=== PATIENT | male | born 2000 | race Caucasian/White ===

== ENCOUNTER 2020-07-17 02:34 | Emergency (ER) | payer BC, SELFPAY ==
[2020-07-17 02:38] VITALS: BP 123/75; PULSE 95; RESP 14; TEMP 37.2; O2SAT 100
--- NOTE | 2020-07-17 02:44 | ED.GENADUL_ITS ---
Discharge Plan Disposition Patient Disposition: HOME Condition: Stable Discharge Details Clinical Impression: Wrist pain, right ED Provider: Jh Leal Home Meds and New Rx's Prescriptions: No Action oxymetazoline [Nasal [place] Sinus] 0.05 % [place],Non-Aerosol 1 spray INTRANASAL DAILY RF: 0 levocetirizine [Xyzal] 5 mg Tablet 5 mg PO DAILY RF: 0 Arnuity Ellipta 200 mcg/actuation Blister With Device 1 inh INHALATION HS RF: 0 Discharge Instructions Instructions: Tendinitis (ED) Additional Instructions: you likely have inflammation of the tendons causing your pain you can take 600mg ibuprofen every 1000mg tylenol every 6 hours for pain as needed if pain continues in a week call orthopedics for an appointment return to the emergency department for severe worsening pain or numbness Referrals: Jose Alejandro Ferris MD [ [facility] STAFF PHYSICIAN] - Medical Decision Making 20 yo male who denies chronic medical problems who is going to school here and normally lives in [place] comes in after he woke up with his right arm bent sideways and was laying on it and felt pain in the wrist so came here. Denies falls or trauma, no fevers. He has not taken anything for the pain. Has no numbness. Has full rom of the wrist and fingers with intact sensation normal capillary refill and normal radial and ulnar pulses. Has pain when he moves wrist towards ulnar side and no swelling or deformity. I suspect strain from position of sleep and possible tendonitis. No trauma and full rom and no findings to suspect fracture. NO findings to suggest vascular abnormality and no swelling. Will place in splint for comfort and have him f/u with ortho if pain continues in a week and return precautions given Differential Diagnosis Differential Diagnosis: sprain, tendonitis, strain HPI General Mode of arrival: ambulatory . Date/Time Provider Initiated Documentation: 07/17/20 02:35 . Limitations to Documentation: no limitations . Information obtained by: patient . History of Present Illness 20 year old M presents to the emergency department with the chief complaint of right wrist pain, described as moderate, and it has been constant. Rest improves symptom(s), Movement worsens symptoms . Patient notes no other symptoms.. Related Data Home Medications Medication Instructions Recorded Confirmed fluticasone furoate [Arnuity 1 inh INHALATION HS 07/17/20 07/17/20 Ellipta] levocetirizine [Xyzal] 5 mg PO DAILY 07/17/20 07/17/20 oxymetazoline [Nasal [place] Sinus] 1 spray INTRANASAL DAILY 07/17/20 07/17/20 Allergies Allergy/AdvReac Type Severity Reaction Status Date / Time Penicillins Allergy Intermediate Skin Rash Unverified 07/17/20 02:43 General Stated Complaint: Orthopedic ELÍAS: 4 Review of Systems All systems reviewed & are unremarkable except as noted in HPI and below Constitutional Constitutional: Denies chills, Denies fever(s) and Denies weakness Cardiovascular Cardiovascular: Denies chest pain and Denies dyspnea Respiratory Respiratory: Denies cough and Denies dyspnea Gastrointestinal Gastrointestinal: Denies abdominal pain, Denies nausea and Denies vomiting Musculoskeletal Musculoskeletal: Denies joint swelling Neurologic Neurologic: Denies weakness Psychiatric Psychiatric: Denies depression [facility] Social History Smoking/Tobacco Use Status: Never Alcohol Intake: never Substance use type: does not use Do you feel safe at home: Yes Exam Const General: no acute distress Orientation: alert HENMT Head: normal to inspection Ears: external ears normal General nose exam: external nose normal Mouth: moist mucous membranes Eyes General: appearance normal, both eyes and all related structures Neck Neck: normal visual inspection Resp Effort & Inspection: normal respiratory effort and able to speak in complete sentences Cardio Rate: regular rate Skin General skin exam: no rashes or lesions noted Neuro General: patient alert and patient oriented x3 Extrem General: normal to inspection Psych Mental Status: mental status grossly normal Course Vital Signs Vital signs: Vital Signs Temperature 37.2 C 07/17/20 02:38 Pulse 95 H 07/17/20 02:38 Respiratory Rate 14 07/17/20 02:38 Blood Pressure 123/75 07/17/20 02:38 Pulse Oximetry 100 07/17/20 02:38 Temperature 37.2 C 07/17/20 02:38 Pulse 95 H 07/17/20 02:38 Respiratory Rate 14 07/17/20 02:38 Blood Pressure 123/75 07/17/20 02:38 Blood Pressure Position Sitting 07/17/20 02:38 Pulse Oximetry 100 07/17/20 02:38 Oxygen Delivery Method Room Air 07/17/20 02:38 Oxygen Flow Rate 0 07/17/20 02:38 Pain Level 7 07/17/20 02:38
[2020-07-17 02:53] VITALS: BP 123/75; PULSE 95; RESP 14; TEMP 37.2; O2SAT 100
[2020-07-17] MEDS: Ibuprofen 600 MG TAB PO (02:53)
== END 2020-07-17 03:03 | disposition home or self-care (01) ==
LOC: ER 03:07
PROVIDERS: Emergency Provider Emergency Medicine
DX: M25.531 Pain in right wrist (principal)
CPT/HCPCS: 29125; 99283; L3908

== ENCOUNTER 2020-07-24 05:29 | Emergency (ER) | payer BC, SELFPAY ==
--- NOTE | 2020-07-24 05:30 | DI.RAD_ITS ---
EXAM: XR ANKLE RT COMPLETE CLINICAL HISTORY: trauma TECHNIQUE: COMPARISON: No exams were available for comparison FINDINGS: Three views were obtained. The ankle mortise is well maintained. There is no evidence of fracture o r dislocation. IMPRESSION: RADIATION DOSE DELIVERED: Total DLP
--- NOTE | 2020-07-24 05:31 | ED.GENADUL_ITS ---
Discharge Plan Disposition Patient Disposition: HOME Condition: Good Discharge Details Clinical Impression: Ankle sprain Primary Care Provider: Nancy,Local ED Provider: Fab Holcomb Meds and New Rx's Prescriptions: Continued levocetirizine [Xyzal] 5 mg Tablet 5 mg PO DAILY RF: 0 Arnuity Ellipta 200 mcg/actuation Blister With Device 1 inh INHALATION HS RF: 0 dexmethylphenidate [Focalin XR] 25 mg Capsule,Er Biphasic 50-50 25 mg PO DAILY RF: 0 Discharge Instructions Instructions: Ankle Sprain (ED) Additional Instructions: Ice, elevate, ibuprofen or acetaminophen as needed. Splint for comfort and weight-bear as tolerated. Follow-up 2 weeks if not getting better. Return to ED for problems. Medical Decision Making Fails Vance ankle rules due to tenderness to the posterior medial malleolus. X-ray ordered. Motrin given. X-ray negative per my review. Patient will be placed in a gel cast for support and discharged home weight-bear as tolerated. HPI General Date/Time Provider Initiated Documentation: 07/24/20 05:30 . Limitations to Documentation: no limitations . Information obtained by: patient and RN notes reviewed . HPI Narrative: Patient presents to ED with right ankle pain. Patient reports miss stepping on some stairs last night. Iced it overnight. However this morning while going to the bathroom twisted his ankle again. Denies other injury. Did not take anything for pain. He is here this morning for evaluation. Related Data Home Medications Medication Instructions Recorded Confirmed Arnuity Ellipta 1 inh INHALATION HS 07/17/20 07/24/20 dexmethylphenidate [Focalin XR] 25 mg PO DAILY 07/17/20 07/24/20 levocetirizine [Xyzal] 5 mg PO DAILY 07/17/20 07/24/20 Allergies Allergy/AdvReac Type Severity Reaction Status Date / Time Penicillins Allergy Intermediate Skin Rash Unverified 07/17/20 02:43 General ELÍAS: 4 Review of Systems Constitutional Constitutional: Denies fever(s) Cardiovascular Cardiovascular: Denies dyspnea Respiratory Respiratory: Denies cough and Denies dyspnea Musculoskeletal Musculoskeletal: Reports arthralgias [facility] Medical History ADHD Asthma Social History Smoking/Tobacco Use Status: Never Smoking risk assessment performed?: Yes Alcohol Intake: never Substance use type: does not use Do you feel safe at home: Yes Do you feel safe in your relationship?: Yes Exam Narrative Exam Narrative: Const: WDWN male in NAD. HEENT: NC/AT. Normal facial exam. Eyes: Normal conjunctiva and sclera. Neck: Supple. Trachea midline. Lungs: Normal respiratory effort. Neuro: A+O x 3. Normal speech, mentation. Cranial nerves II - XII grossly intact. No gross motor or sensory deficit. Ext: Minimal swelling. Tenderness posterior medial malleoli. No tenderness proximal fibula or foot. Neurovascularly intact.
[2020-07-24 05:35] VITALS: BP 136/82; PULSE 105; RESP 16; TEMP 36.6; O2SAT 98
[2020-07-24] MEDS: Ibuprofen 600 MG TAB PO (05:43)
--- NOTE | 2020-07-24 06:09 | DI.VRAD_ITS ---
PROCEDURE INFORMATION: Exam: XR Right Ankle Exam date and time: 07/24/2020 5:39 AM Age: 20 years old Clinical indication: Pain and injury or trauma; Other: Rolled ankle; Sprain or strain; Right TECHNIQUE: Imaging protocol: XR Right ankle. Views: 3 or more views. COMPARISON: No relevant prior studies available. FINDINGS: Bones/joints: Normal. Soft tissues: Normal. IMPRESSION: No acute findings. Dictated and Authenticated by: Missael Diaz MD. Ordering:DARIAN Sanon MD
== END 2020-07-24 06:15 | disposition home or self-care (01) ==
PROVIDERS: Emergency Provider Emergency Medicine
DX: S93.401A Sprain of unspecified ligament of right ankle, initial encounter (principal); X50.9XXA Other and unspecified overexertion or strenuous movements or postures, initial encounter
CPT/HCPCS: 29515; 99283; 73610; L1902

== ENCOUNTER 2021-06-27 14:27 | Emergency (ER) | payer OTHER, BC, SELFPAY ==
[2021-06-27] VITALS (15 sets, daily range): BP systolic 98–120; BP diastolic 53–68; PULSE 83–103; RESP 8–20; TEMP 36.9; O2SAT 98–100
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
[2021-06-27 15:03] LABS: Abs Immature Grans 0.15 10^3/uL (0.0-0.06); Absolute Basophil Count 0.06 10^3/uL (0.0-0.2); Absolute Eosinophil Count 0.11 10^3/uL (0.0-0.7); Absolute Monocyte Count 0.82 10^3/uL (0.1-0.8); Absolute Neutrophil Count 8.81 10^3/uL (1.2-6.7); Basophils % 0.5; Eosinophils % 0.9; HCT 43.4 % (40.0-50.0); HGB 13.4 g/dL (13.5-17.5); Immature Grans % 1.3; Lymphocytes % 16.2; MCH 18.8 pg (27.0-33.0); MCHC 30.9 % (32.0-36.0); MPV 10.5 fL (8.0-11.0); Monocytes % 6.9; Neutrophils % 74.2; Nucleated RBC 0 %; Platelet Count 321 10^3/uL (130-400); RBC 7.12 10^6/uL (4.36-5.78); RDW 18.2 % (11.8-14.1); RDW-SD 33.7 fL; WBC 11.88 10^3/uL (4.4-10.8)
[2021-06-27 15:04] LABS: Absolute Lymphocyte Count 1.92 10^3/uL (1.2-3.4)
[2021-06-27] MEDS: Omnipaque 350 MG/ML 100 ML BTL IJ (15:04)
[2021-06-27] MEDS: Normal Saline 1,000 ML 1000 ML IV (15:04)
[2021-06-27] MEDS: Normal Saline - Diluent 50 ML VIAL IV (15:05)
[2021-06-27] MEDS: Normal Saline Flush 10 ML SYR IVP (15:06)
[2021-06-27 15:24] LABS: ALT 37 U/L (16-63); AST 29 U/L (15-37); Albumin 4.4 g/dL (3.4-5.0); Alkaline Phosphatase 82 U/L (46-116); Anion Gap 9.3 mmol/L (3-11); BUN 11 mg/dL (7-18); Bilirubin, Total 1.2 mg/dL (0.2-1.0); CO2 26.7 mmol/L (21.0-32.0); Calcium 8.6 mg/dL (8.5-10.1); Chloride 104 mmol/L (98-107); Glucose 109 mg/dL (74-106); Lipase 83 U/L (73-393); Magnesium 1.8 mg/dL (1.8-2.4); Potassium 4.3 mmol/L (3.5-5.1); Sodium 140 mmol/L (136-145); Total Protein 7.7 g/dL (6.4-8.2); Troponin I < 0.05 ng/mL (<0.06)
[2021-06-27 15:33] LABS: Anisocytosis 1+; Diff Comment RBC Morph Reviewed; Hypochromasia 1+; Microcytosis 3+
--- NOTE | 2021-06-27 16:11 | NUR.NOTE ---
Nursing Note: Wallet, necklace, container of brick dust put in to a hard shell container for transfer, Tshirt sweatshirt that was cut, jeans with leather belt, underwear, socks, put in bag for transfer. Second bag contains boots that belonged to other patient in vehicle. 2 insurance cards were removed, copied and put back in wallet, patient witnessed this.. Piper Coombs
== END 2021-06-27 17:03 | disposition short-term general hospital (02) ==
PROVIDERS: Emergency Provider Physician Assistant
DX: S12.691A Other nondisplaced fracture of seventh cervical vertebra, initial encounter for closed fracture (principal); S22.038A Other fracture of third thoracic vertebra, initial encounter for closed fracture; S01.01XA Laceration without foreign body of scalp, initial encounter; R07.81 Pleurodynia; V99.XXXA Unspecified transport accident, initial encounter
CPT/HCPCS: 12002; 36415; 74177; 80053; 83690; 86850; 86900; 86901; 96361; 96374; 99285; 70450; 71260; 72125; 83735; 84484; 85025; J3490